=== PATIENT | male | born 1950 | race Caucasian/White ===

== ENCOUNTER 2023-03-14 09:39 | Day surgery (SDC) | payer MEDICARE, BC ==
[2023-03-11 12:08] VITALS: BMI 28.7
[2023-03-14] MEDS ORDERED: fentaNYL PF 100 MCG/2 ML SYRINGE ONE ×2 (10:09)
[2023-03-14] MEDS ORDERED: EPINEPHrine 1 MG/ML AMP ONE (10:14)
[2023-03-14] MEDS ORDERED: Bupivacaine 0.25% HCL 30 ML VIAL ONE (10:14)
[2023-03-14 10:58] LABS: #Eosinphils 0.1 thou/uL (0.0-0.7); #Monocytes 0.5 thou/uL (0.11-0.59); #Neutrophils 2.2 thou/uL (1.40-6.50); %Basophils 0.7 % (0.0-1.0); %Eosinophils 2.9 % (0.0-10.0); %Lymphocytes 29.9 % (21.0-51.0); %Monocytes 13.1 % (0.0-10.0); %Neutrophils 53.2 % (42.0-75.0); Hematocrit 35.3 % (42.0-52.0); Hemoglobin 11.4 g/dL (14.0-18.0); Mean Corpuscular HGB CONC 32.3 g/dL (32.0-36.0); Mean Corpuscular Hemoglobin 28.2 pg (27.0-31.0); Mean Corpuscular Volume 87.4 fl (78.0-98.0); Platelet Count 153 10x3/uL (130-400); RBC Distribution Width 13.2 % (11.5-14.5); Red Blood Cell (RBC) Count 4.04 mill/uL (4.70-6.10); White Blood Cell (WBC) Count 4.1 10x3/uL (4.8-10.8)
[2023-03-14] MEDS ORDERED: CEFAZOLIN 2 GM VIAL ONE (11:17)
[2023-03-14] MEDS ORDERED: Sodium Chloride 0.9% 100 ML ONE (11:17)
[2023-03-14] MEDS ORDERED: Glycopyrrolate 0.2 MG/ML 5 ML SYRINGE ONE (11:53)
[2023-03-14] MEDS ORDERED: PROPOFOL 200 MG/20 ML VIAL ONE (11:53)
[2023-03-14] MEDS ORDERED: Ondansetron PF 4 MG/2 ML Vial ONE (11:53)
[2023-03-14] MEDS ORDERED: Dexamethasone 20 MG/5 ML VIAL ONE (11:53)
[2023-03-14] MEDS ORDERED: Lidocaine 1% PF 5 ML VIAL ONE (11:53)
[2023-03-14] MEDS ORDERED: Rocuronium Bromide 10 MG/ML (10ML VIAL) ONE (11:53)
[2023-03-14] MEDS ORDERED: ePHEDrine Sulfate 50 MG/10 ML VIAL ONE (11:53)
[2023-03-14] MEDS ORDERED: SUGAMMADEX SODIUM 200 MG/2 ML VIAL ONE (12:42)
[2023-03-14] MEDS ORDERED: fentaNYL 50 mcg/mL 1 mL Vial ONE (13:01)
[2023-03-14] MEDS ORDERED: HYDROcodone/Acetaminophen 5/325 mg Tablet ONE (14:58)
== END 2023-03-14 15:54 | disposition home or self-care (01) ==
LOC: SDC 09:39
PROVIDERS: ATTEND Surgery
PROC: 0WUF4JZ Supplement Abdominal Wall with Synthetic Substitute, Percutaneous Endoscopic Approach (ICD-10-PCS; principal; 2023-03-14)
DX: K40.90 Unilateral inguinal hernia, without obstruction or gangrene, not specified as recurrent (principal); K42.9 Umbilical hernia without obstruction or gangrene; D64.9 Anemia, unspecified; Z88.2 Allergy status to sulfonamides
CPT/HCPCS: 49650; 85025; 93005; C1781; C1889; J3010; 93010; J0171; J1100; J2405; J2704; J3490; S0020

== ENCOUNTER 2023-06-08 09:15 | Day surgery (SDC) | payer MEDICARE, BC ==
[2023-06-07 09:41] VITALS: BMI 29.0
[2023-06-08] MEDS ORDERED: fentaNYL PF 100 MCG/2 ML SYRINGE ONE (10:12)
[2023-06-08] MEDS ORDERED: Lidocaine 1% PF 5 ML VIAL ONE ×2 (10:14→10:36)
[2023-06-08] MEDS ORDERED: PROPOFOL 20 ML ONE (10:14)
[2023-06-08] MEDS ORDERED: Rocuronium Bromide 10 MG/ML (10ML VIAL) ONE ×2 (10:14→10:36)
[2023-06-08] MEDS ORDERED: cefOXitin 2 GM VIAL ONE (10:22)
[2023-06-08] MEDS ORDERED: Sodium Chloride 0.9% 100 ML ONE (10:23)
[2023-06-08] MEDS ORDERED: ePHEDrine Sulfate 50 MG/10 ML VIAL ONE (10:36)
[2023-06-08] MEDS ORDERED: Ondansetron PF 4 MG/2 ML Vial ONE ×2 (10:36→10:44)
[2023-06-08] MEDS ORDERED: PROPOFOL 200 MG/20 ML VIAL ONE (10:36)
[2023-06-08] MEDS ORDERED: Dexamethasone 20 MG/5 ML VIAL ONE (10:36)
[2023-06-08] MEDS ORDERED: Dexamethasone 4 mg/ml Vial ONE (10:44)
[2023-06-08] MEDS ORDERED: SUGAMMADEX SODIUM 200 MG/2 ML VIAL ONE (11:05)
[2023-06-08] MEDS ORDERED: fentaNYL 50 mcg/mL 1 mL Vial ONE ×2 (11:35→11:53)
[2023-06-08] MEDS ORDERED: HYDROcodone/Acetaminophen 5/325 mg Tablet ONE ×2 (12:54→15:13)
== END 2023-06-08 15:20 | disposition home or self-care (01) ==
LOC: SDC 09:15
PROVIDERS: ATTEND Surgery
PROC: 06BY0ZC Excision of Hemorrhoidal Plexus, Open Approach (ICD-10-PCS; principal; 2023-06-08)
DX: K64.3 Fourth degree hemorrhoids (principal); Z96.651 Presence of right artificial knee joint; Z98.890 Other specified postprocedural states; Z88.2 Allergy status to sulfonamides
CPT/HCPCS: 46947; J3010; 88304; J0694; J1100; J2405; J2704; J3490